=== PATIENT | female | born 1985 | race Caucasian/White ===

== ENCOUNTER → 2017-12-26 16:22 | Outpatient (CLI) | payer OTHER, SELFPAY ==
[2017-12-26 16:33] LABS: Bacteria Urine None Seen; RBC Urine None Seen (0-5/HPF); WBC Urine None Seen (0-5/HPF)
[2017-12-26 16:55] LABS: Add Manual Diff / Slide Review NO; Basophils Percent Auto 0.7 % (0-2); Eosinophils Percent Auto 4.4 % (2-4); Hematocrit 41.7 % (36-46); Hemoglobin 14.2 g/dL (12.0-16.0); Lymphocytes Percent Auto 38.7 % (25-40); Mean Corpuscular HGB Conc 34.1 % (30-36); Mean Corpuscular Hemoglobin 32.7 PG (26-34); Mean Corpuscular Volume 96.1 fL (80-100); Monocytes Percent Auto 3.7 % (3-14); Neutrophils Absolute Auto 5500 /uL (3000-5900); Neutrophils Percent Auto 52.5 % (50-75); Platelet Count 220 X10^3/uL (150-400); Red Blood Cell Count 4.34 X10^6/uL (4.0-5.2); Red Cell Distribution Width 13.5 % (11.6-14.8); White Blood Cell Count 10.5 X10^3/uL (4.5-11.0)
[2017-12-26 16:56] LABS: Appearance Urine UA CLEAR; Bilirubin Urine UA NEGATIVE (NEGATIVE); Color Urine UA YELLOW; Glucose Urine UA NEGATIVE (Normal); Ketones Urine UA TRACE (NEGATIVE); Leukocyte Esterase Urine UA NEGATIVE (NEGATIVE); Nitrite Urine UA Negative (Negative); Occult Blood Urine UA NEGATIVE (Negative); Protein Urine UA NEGATIVE (Negative); Specific Gravity Urine UA 1.015 (1.000-1.035); Urobilinogen Urine UA 0.2 E.U./dL (0.2)
[2017-12-26 17:14] LABS: Culture Indicated Urine Cult Not Indicated
[2017-12-26 17:17] LABS: Hemoglobin A1C% w Est Avg Glu 4.9 % (4.0-6.0)
[2017-12-26 17:35] LABS: BUN Creatinine Ratio 16.7 (6-22); Blood Urea Nitrogen 10 mg/dL (7-17); Carbon Dioxide 28 mmol/L (22-32); Chloride 104 mmol/L (98-107); Estimated Glomerular Filt Rate > 60.0 mL/min (>60); Glucose 87 mg/dL (70-100); HEMOLYSIS < 15 (0-50); Potassium 4.6 mmol/L (3.4-5.1); Sodium 144 mmol/L (137-145)
[2017-12-26 17:44] LABS: Transferrin 295 mg/dL (206-381)
== END ==
PROVIDERS: Visit Provider Orthopaedic Surgery
DX: Z01.812 Encounter for preprocedural laboratory examination (principal); D64.9 Anemia, unspecified; R73.9 Hyperglycemia, unspecified
CPT/HCPCS: 36415; 80048; 81001; 83036; 84466; 85025

== ENCOUNTER 2018-01-03 19:59 | Emergency (ER) | payer OTHER, SELFPAY ==
[2018-01-03 20:13] VITALS: BP 114/77; PULSE 102; RESP 16; TEMP 36.7; O2SAT 100; BMI 18.8
--- NOTE | 2018-01-03 20:36 | ED_ITS ---
HPI - Extremity Problem General Chief complaint: Extremity Problem,Nontraumatic Stated complaint: RIGHT CALF CRAMPING AND FOOT SWELLING/PAIN Time Seen by Provider: 01/03/18 20:15 Source: patient and family Mode of arrival: ambulatory Limitations: no limitations History of Present Illness HPI Narrative: Patient presents to the emergency department with chief complaint of right lower extremity pain, numbness, tingling and pallor over the course of the day. She had a right partial knee done yesterday and was tightly wrapped with the Nader wrap. She started having symptoms this morning and the Nader wrap was 1st loosened this evening. Almost immediately upon loosening the Nader wrap she regained a palpable pulse on the dorsum of her foot MD Complaint: extremity pain Onset (ago): hour(s) Pain Consistency: constant Location: right Severity scale (1-10): 5 Quality: aching Related Data Home Medications Medication Instructions Recorded Confirmed [ CONTROL PILL] #0 12/24/16 naproxen sodium 220 mg PO #0 12/24/16 tramadol 50 mg PO QDAYP PRN #0 12/24/16 Previous Rx's Medication Instructions Recorded oxycodone 5 mg PO Q4HP PRN #40 tab 01/07/17 Allergies Allergy/AdvReac Type Severity Reaction Status Date / Time No Known Allergies Allergy Uncoded 01/03/18 20:13 Review of Systems Review of Systems All systems reviewed & are unremarkable except as noted in HPI and below Constitutional Denies chills, Denies fever(s), Denies lethargy and Denies weakness Eyes Denies change in vision, Denies eye discharge, Denies irritation and Denies loss of vision ENT Ears, Nose, Mouth, and Throat: Denies change in voice, Denies neck pain and Denies sore throat Cardiovascular Denies chest pain, Denies irregular heart rhythm, Denies lightheadedness, Denies palpitations, Denies dyspnea, Denies dyspnea on exertion and Denies orthopnea Respiratory Denies cough, Denies dyspnea, Denies dyspnea on exertion and Denies wheezing Gastrointestinal Gastrointestinal: Denies abdominal pain, Denies change in bowel habits, Denies diarrhea, Denies nausea and Denies vomiting Genitourinary Denies hematuria, Denies flank pain, Denies urinary incontinence and Denies urinary urgency Musculoskeletal Reports joint swelling, Reports limited range of motion, Denies neck pain, Reports numbness, Reports radiating pain into limb and Reports tingling Integumentary/Breasts Denies pruritus, Denies erythema, Denies rash and Denies wounds Neurologic Denies confusion, Denies loss of vision, Reports numbness, Reports tingling and Denies weakness Psychiatric Denies anxiety, Denies confusion, Denies depression, Denies homicidal ideation and Denies suicidal ideation Endocrine Denies palpitations Hematologic/Lymphatic Denies easy bruising Allergic/Immunologic Denies wheezing [facility] Social History Smoking Status: Current every day smoker Exam Narrative Exam Narrative: Healthy 32-year-old female in mild distress Initial Vital Signs Initial Vital Signs: Vital Signs Temperature 98.0 F 01/03/18 20:13 Pulse Rate 102 H 01/03/18 20:13 Respiratory Rate 16 01/03/18 20:13 Blood Pressure 114/77 01/03/18 20:13 Pulse Oximetry 100 01/03/18 20:13 Const General: cooperative, well developed and in distress Nutritional Appearance: well nourished Orientation: alert, awake, oriented x3 and not confused HENME Head: normocephalic and atraumatic Ears: external ears normal and TM's normal bilaterally Nose: external nose normal and No nasal discharge Face and sinus: sinuses nontender, face symmetric, no sinus tenderness and No dry mucous membranes Mouth: oral mucosae normal and moist mucous membranes Teeth and gingiva: dentition normal Throat: tonsils normal and uvula midline Chest Chest: normal inspection of the chest Cardio Rate: regular rate Rhythm: regular rhythm Heart Sounds: no click, no gallops, no murmurs and no rubs Pulses: normal peripheral pulses Back/Spine/Pelvis Back: No CVA tenderness Cervical Spine: cervical ROM normal and No pain with cervical ROM Thoracic/Lumbar Spine: thoracic and lumbar spine normal to inspection Skin General: no rashes or lesions noted, No jaundice and No petechiae Extrem Right lower extremity: lower leg (Right lower extremity demonstrates minimal swelling distal to the knee without erythema or warmth to the touch. All compartments are soft. Patient does have some tenderness to palpation just medial to the lower scope insertion site.) Other: Cap refill intact with a and easily Dopplered dorsalis pedis and posterior tibial pulse. Initially foot is cool to the touch and possibly had some sluggish cap refill, this rapidly improved after removal of Nader wrap Course Orders Ordered: ED Orders 01/03/18 20:34 US arterial duplex LE RT Stat Vital Signs - 8 hr 01/03/18 21:29 Pulse Rate 99 H Respiratory Rate 93 H Blood Pressure 109/58 L Pulse Oximetry 99 MDM - Extremity (Nontraumatic) Imaging Data Arterial US: Radiologist's impression: PROCEDURE: US ARTERIAL DUPLEX LE RT INDICATIONS: pain, cool, numb RLE below recent knee surgery TECHNIQUE: Color and pulse Doppler interrogation was performed of the right lower extremity arterial system, with image documentation. COMPARISON: None. FINDINGS: Common femoral artery: 187 cm/sec, with biphasic flow. Deep femoral artery: 109 cm/sec, with biphasic flow. Proximal superficial femoral artery: 149 cm/sec, with biphasic flow. Mid superficial femoral artery: 159 cm/sec, with biphasic flow. Distal superficial femoral artery: 162 cm/sec, with biphasic flow. Popliteal artery: 100 cm/sec, with triphasic flow. Posterior tibial artery: 32 cm/sec, with biphasic flow. Anterior tibial artery/dorsalis pedis: 58 cm/sec, with biphasic flow. [place]-scale imaging description: No atherosclerotic plaque identified. IMPRESSION: No vascular occlusion or hemodynamically significant vascular stenosis. Dictated by: Yanira Parker MD, PhD on 01/03/2018 at 21:19 Discharge Plan Departure Patient Disposition: Home, Self-Care Clinical Impression: Acute postoperative pain of knee Discharge Date/Time: 01/03/18 21:31 Interventions: ED Discharge Assessment Last Done: 01/03/18 21:29 Instructions: Acute Compartment Syndrome, DI for Leg Pain Activity Restrictions/Additional Instructions: *You have been diagnosed with [ acute postoperative leg pain ] *What to do: * continue to take medications as directed *Follow up with your primary care provider in 2-3 days *Return to ER if you should have any new, worsening or concerning symptoms Prescriptions: No Action naproxen sodium 220 MG tablet 220 mg PO Qty: 0 RF: 0 [ CONTROL PILL] Qty: 0 RF: 0 tramadol 50 MG tablet 50 mg PO QDAYP PRNQty: 0 RF: 0 oxycodone 5 MG tablet 5 mg PO Q4HP PRNQty: 40 RF: 0
[2018-01-03 21:29] VITALS: BP 109/58; PULSE 99; RESP 93; O2SAT 99
== END 2018-01-03 21:31 | disposition home or self-care (01) ==
PROVIDERS: Emergency Provider Emergency Medicine
DX: G89.18 Other acute postprocedural pain (principal); M25.561 Pain in right knee
CPT/HCPCS: 93926; 99282; 99284